=== PATIENT | female | born 1985 | race Caucasian/White ===

== ENCOUNTER 2024-07-11 15:54 | Outpatient (CLI) | payer OTHER, SELFPAY ==
[2024-07-14 15:34] LABS: CA-125 12 U/mL (<35)
== END 2024-07-11 15:55 | disposition home or self-care (01) ==
LOC: ANHLAB 15:57
PROVIDERS: Visit Provider Obstetrics & Gynecology
DX: N94.89 Other specified conditions associated with female genital organs and menstrual cycle (principal)
CPT/HCPCS: 36415; 86304